=== PATIENT | female | born 1975 | race African-American/Black ===

== ENCOUNTER 2018-07-03 05:31 | Emergency (ER) | payer SELFPAY ==
[~2018-07-03] VITALS: Ht 162.6 cm; Wt 129.0 kg
[2018-07-03] MEDS ORDERED: SODIUM CHLORIDE 0.9% 1,000 ML IV ONE (06:44)
[2018-07-03] MEDS ORDERED: KETOROLAC 30MG/ML VIAL IV STA (06:44)
[2018-07-03] MEDS ORDERED: MORPHINE SULFATE 4 MG/ML CPJ (NOT FOR IM USE) IV STA (06:44)
[2018-07-03] MEDS ORDERED: ONDANSETRON HCL 4MG/2ML VIAL IV STA (06:44)
[2018-07-03] MEDS ORDERED: DEXAMETHASONE 10 MG/ML VIAL IV ONE (07:00)
[2018-07-03 09:11] LABS: *AMPHETAMINES SCREEN URINE NEGATIVE (NEGATIVE); *BARBITURATES SCREEN URINE NEGATIVE (NEGATIVE)
[2018-07-03 09:15] LABS: METHADONE URINE SCREEN NEGATIVE (NEGATIVE)
[2018-07-03 09:18] LABS: *BENZODIAZEPINES SCREEN URINE NEGATIVE (NEGATIVE); PHENCYCLIDINE URINE SCREEN NEGATIVE (NEGATIVE)
[2018-07-03 09:30] LABS: *COCAINE SCREEN URINE PRESUMTIVE POSITIVE (NEGATIVE); CANNABINOID URINE SCREEN PRESUMTIVE POSITIVE (NEGATIVE); OPIATES URINE SCREEN PRESUMTIVE POSITIVE (NEGATIVE)
[2018-07-03] MEDS ORDERED: DIAZEPAM 5 MG TABLET PO ONE (09:30)
[2018-07-03 10:46] VITALS: BP 138/78
== END 2018-07-03 10:48 | disposition home or self-care (01) ==
LOC: ER 05:31
DX: M54.40 Lumbago with sciatica, unspecified side (principal); G89.29 Other chronic pain; I10 Essential (primary) hypertension; F14.10 Cocaine abuse, uncomplicated; E66.01 Morbid (severe) obesity due to excess calories; F17.200 Nicotine dependence, unspecified, uncomplicated; Z68.42 Body mass index [BMI] 45.0-49.9, adult
CPT/HCPCS: 72100; 80305; 81025; 96374; 96375; 99285; J1100; J1885; J2270; J2405; J7030